=== PATIENT | male | born 1995 | race Hispanic/Latino ===

== ENCOUNTER 2023-12-18 14:34 | Emergency (ER) | payer OTHER ==
[~2023-12-18] VITALS: Ht 162.6 cm; Wt 68.9 kg
[2023-12-18 14:58] VITALS: BP 147/80; PULSE 94; RESP 18
[2023-12-18] MEDS ORDERED: FAMO-136 PO (17:23)
[2023-12-18] MEDS ORDERED: HYDR-3830 PO (17:23)
[2023-12-18] MEDS ORDERED: ONDA-243 PO (17:23)
== END 2023-12-18 17:49 | disposition home or self-care (01) ==
LOC: EDH 14:34
DX: F41.9 Anxiety disorder, unspecified (principal); K21.9 Gastro-esophageal reflux disease without esophagitis
CPT/HCPCS: 84484; 93005